=== PATIENT | female | born 1980 | race Caucasian/White ===

== ENCOUNTER 2019-02-08 12:56 | Outpatient (CLI) | payer OTHER | END 2019-02-08 13:18 | disposition home or self-care (01) | LOC: LAB 12:56 | DX: A81.2 Progressive multifocal leukoencephalopathy (principal); G35 Multiple sclerosis ==

== ENCOUNTER → 2019-03-22 | Emergency (ER) | payer OTHER ==
[~2019-03-22] VITALS: Ht 165.1 cm; Wt 61.2 kg
[~2019-03-22] MED LIST: TYSABRI300 MG/15 IV
== END | disposition home or self-care (01) ==
LOC: ER 16:40
DX: G35 Multiple sclerosis (principal); R42 Dizziness and giddiness